=== PATIENT | male | born 1965 | race Caucasian/White ===

== ENCOUNTER 2020-11-01 07:00 | Day surgery (SDC) | payer OTHER ==
[2020-10-29 08:56] LABS: COVID AG,FIA SOURCE NASOPHARYNGEAL
[~2020-11-01] VITALS: Ht 177.8 cm; Wt 115.5 kg
[~2020-11-01 07:00] MED LIST: ASPI-728 PO; ATOM40CA9 PO; CHL25 PO; ERGO500054 PO; FOLI-130 PO; INSU100I26 SQ; LOVA20TA73 PO; SODIUM CHLORIDE 0.9% 1,000 ML IV ONE; SODIUM CHLORIDE 0.9% 1,000 ML ONE
[2020-11-01] MEDS ORDERED: MIDAZOLAM HCL 2 MG/2 ML VIAL ONE (07:38)
[2020-11-01] MEDS ORDERED: FentaNYL CITRATE PF 100 MCG/2 ML VIAL ONE (07:38)
[2020-11-01 08:13] LABS: GLUCOMETER DEV NAME(LOC) SDS.; GLUCOSE,POINT OF CARE 170 MG/DL (70-110)
[2020-11-01] MEDS ORDERED: MethylPREDNISolone SOD SUCC 125 MG/2 ML VIAL IVP ONE (09:00)
[2020-11-01] MEDS ORDERED: MethylPREDNISolone SOD SUCC 125 MG/2 ML VIAL ONE (09:45)
[2020-11-01] MEDS ORDERED: LIDOCAINE 2% 30 ML JELLY ONE (16:49)
[2020-11-01] MEDS ORDERED: ALBUTEROL SULFATE 2.5 MG/0.5 ML NEB SOLUTION NEB ONE (16:49)
[2020-11-01] MEDS ORDERED: BENZOCAINE 20% 50 MCG/SPRAY 57 GM ONE (16:49)
[2020-11-01] MEDS ORDERED: LIDOCAINE 4% 50 ML SOLUTION ONE (16:49)
[2020-11-01] MEDS ORDERED: OXYGEN THERAPY IH SCH (20:00)
== END 2020-11-01 10:55 | disposition left against medical advice (07) ==
LOC: SURGERY 07:00
PROVIDERS: ATTEND Internal Medicine Critical Care Medicine
DX: J38.4 Edema of larynx (principal); B37.0 Candidal stomatitis; Z87.891 Personal history of nicotine dependence; Z98.890 Other specified postprocedural states; Z79.899 Other long term (current) drug therapy
CPT/HCPCS: 31623; 31624; 71045; 82962; 87015; 87070; 87101; 87206; 87220; 87426; 88108; 88184; 88185; 88312; C9803; J2250; J2930; J3010; J7030; J7613; Z7610